=== PATIENT | female | born 1950 | race Caucasian/White ===

== ENCOUNTER 2018-09-29 08:30 | Day surgery (SDC) | payer MEDICARE, OTHER ==
[~2018-09-29] VITALS: Ht 172.7 cm; Wt 60.7 kg
[~2018-09-29 08:30] MED LIST: ALBU90OI INH; ASPI81CH PO; Aspirin EC81 MG PO; DONE10 PO; DONE5 PO; FURO20 PO; GABA100 PO; GABA300 PO; INSULANPEN; INSULANPEN SC; LISI5 PO; LITH300C PO; MONT10T PO; Novolog Fl100 UNIT/1 SC; Novolog100 UNIT/2 SC; OMEPRAZOLE MAGN20 MG PO; PRAV20 PO; Pravastatin Sod40 MG PO; Prozac20 MG; Prozac20 MG PO; Prozac40 MG PO; SUCR1 PO; TRAZ150T57; TRAZ150T57 PO
--- NOTE | 2018-09-29 11:18 | NUR ---
09/29/18 1118 Haily Miller PT. COUGHING POST UPPER ENDO. PT. WAS COUGHING IN PREOP, PT. IS A SMOKER & PT. VERBALIZES HAVING SINUS DRAINAGE DOWN THE BACK OF HER THROAT. PT. VERBALIZES COUGHING EVERY MORNING & TAKES A POWDER OTC THAT SHE PUTS IN HER COFFEE WHICH HELPS. PT. LUNGS CLEAR.
--- NOTE | 2018-09-29 14:59 | NUR ---
09/29/[address] NOTIFIED OF CBG 320 & HER TAKING 1UNIT OF REGULAR INSULIN AT HOME. PT. WITHOUT ANY ADVERSE REACTIONS. NO ORDERS GIVEN. PT. INSTRUCTED TO RESUME REGULAR MEDICATIONS & TO MONITOR HER BLOOD SUGAR AT HOME.
== END 2018-09-29 10:28 | disposition home or self-care (01) ==
LOC: ORSCSDS 08:30
PROVIDERS: Surgery
PROC: 0DB58ZX Excision of Esophagus, Via Natural or Artificial Opening Endoscopic, Diagnostic (ICD-10-PCS; principal; 2018-09-29 09:45)
DX: K21.9 Gastro-esophageal reflux disease without esophagitis (principal); E11.9 Type 2 diabetes mellitus without complications; Z79.82 Long term (current) use of aspirin; Z79.4 Long term (current) use of insulin; Z79.899 Other long term (current) drug therapy
CPT/HCPCS: 82947; 88305; J7120

== ENCOUNTER 2019-02-09 07:52 | Day surgery (SDC) | payer MEDICARE, OTHER ==
[~2019-02-09] VITALS: Ht 172.7 cm; Wt 60.3 kg
[~2019-02-09 07:52] MED LIST changes: +Zantac150 MG PO
--- NOTE | 2019-02-09 09:11 | NUR ---
02/09/19 0911 Darinel Duran CALL LIGHT WITHIN REACH
== END 2019-02-09 10:20 | disposition home or self-care (01) ==
LOC: ORSCSDS 07:52
PROVIDERS: Surgery
PROC: 0DJD8ZZ Inspection of Lower Intestinal Tract, Via Natural or Artificial Opening Endoscopic (ICD-10-PCS; principal; 2019-02-09 09:30)
DX: R10.9 Unspecified abdominal pain (principal); R19.7 Diarrhea, unspecified; K21.9 Gastro-esophageal reflux disease without esophagitis; E11.9 Type 2 diabetes mellitus without complications; J44.9 Chronic obstructive pulmonary disease, unspecified; E78.5 Hyperlipidemia, unspecified; I73.9 Peripheral vascular disease, unspecified; Z87.891 Personal history of nicotine dependence; Z79.4 Long term (current) use of insulin; Z79.82 Long term (current) use of aspirin; Z79.899 Other long term (current) drug therapy
CPT/HCPCS: 82947; J2704; J7120

== ENCOUNTER 2019-05-28 01:34 | Emergency (ER) | payer MEDICARE ==
[~2019-05-28] VITALS: Ht 172.7 cm; Wt 56.7 kg
[2019-05-28] MEDS ORDERED: Norco 5-325 Ta1 EACH PO (02:34)
[2019-05-28 03:41] LABS: BASOPHILS ABSOLUTE AUTO 0.08 K/mm3 (0.00-0.23); BASOPHILS PERCENT AUTO 1 % (0-2); EOSINOPHILS ABSOLUTE AUTO 0.23 K/mm3 (0.00-0.68); EOSINOPHILS PERCENT AUTO 3 % (0-6); Hematocrit 40.7 % (33.0-51.0); Hemoglobin 12.9 g/dL (11.5-16.0); IMMATURE GRAN ABSOLUTE AUTO 0.03 K/mm3 (0.00-0.10); IMMATURE GRAN PERCENT AUTO 0 % (0-1); LYMPHOCYTES ABSOLUTE AUTO 1.02 K/mm3 (0.84-5.20); LYMPHOCYTES PERCENT AUTO 12 % (21-46); MONOCYTES ABSOLUTE AUTO 0.76 K/mm3 (0.16-1.47); MONOCYTES PERCENT AUTO 9 % (4-13); Mean Corpuscular HGB 28.9 pg (26.0-34.0); Mean Corpuscular HGB Conc 31.7 g/dL (31.5-36.5); Mean Corpuscular Volume 91 fL (80-100); Mean Platelet Volume 11.4 fL (9.1-12.4); NEUTROPHILS ABSOLUTE AUTO 6.44 K/mm3 (1.96-9.15); NEUTROPHILS PERCENT AUTO 75 % (41-73); Platelet Count 219 K/mm3 (150-400); RDW Coefficient Variation 13.1 % (11.7-14.2); RDW Standard Deviation 43.6 fL (35.1-46.3); Red Blood Cell Count 4.47 M/mm3 (3.80-5.20); White Blood Cell Count 8.56 K/mm3 (4.00-11.30)
[2019-05-28 04:01] LABS: Alanine Aminotransfer (ALT/SGP 13 U/L (12-78); Albumin, Blood 3.4 g/dL (3.4-5.0); Albumin/Globulin Ratio 1.2 (0.8-1.8); Alk Phos 101 U/L (50-136); Anion Gap 4 mmol/L (6-16); Aspartate Aminotrans (AST/SGOT 14 U/L (12-37); Bilirubin, Total 0.2 mg/dL (0.1-1.0); Blood Urea Nitrogen 21 mg/dL (8-24); Bun/Creatinine Ratio 21.9 (12.0-20.0); CO2, Blood 30 mmol/L (21-32); Calcium, Blood 9.2 mg/dL (8.5-10.1); Chloride, Blood 105 mmol/L (98-108); Creatinine, Blood 0.96 mg/dL (0.40-1.00); Globulin, Blood 2.9 g/dL (2.2-4.0); Glomerular Filtration Rate >60 (60-); Glucose, Blood 154 mg/dL (70-99); Sodium, Blood 139 mmol/L (136-145); Total Protein, Blood 6.3 g/dL (6.4-8.2); Troponin I <0.015 ng/mL (0.000-0.040)
[2019-05-28 05:19] LABS: Source, Urine Clean Catch; U Amphetamine Screen Not Detected
[2019-05-28 05:20] LABS: U Barbituate Screen Not Detected; U Benzodiazapine Screen Not Detected; U Buprenorphine Screen Not Detected; U Cannabinoids Screen Not Detected; U Cocaine Screen Not Detected; U Methadone Screen Not Detected; U Methamphetamine Screen DETECTED; U Opiates Screen Not Detected; U Oxycodone Screen Not Detected; U Phencyclidine Screen Not Detected; U Propoxyphene Screen Not Detected
[2019-05-28 05:21] LABS: Appearance, Urine Hazy (Clear); Bacteria Few /hpf; Bilirubin, Urine Neg (Neg); Blood, Urine 3+ (Neg); Color, Urine Yellow (P-Yellow); Glucose Qualitative, Urine Neg (Neg); Ketones, Urine Neg (Neg); Leukocyte Esterase, Urine 3+ (Neg); Nitrite, Urine Neg (Neg); Protein, Urine Neg (Neg); Red Blood Cells, Urine 0-2 /hpf (0-2); Specific Gravity, Urine 1.015 (1.003-1.022); Squamous Epithelial Cells Mod /hpf (Few); Urobilinogen, Urine NORM (Normal)
[2019-05-28 05:22] LABS: Amorphous Mod (0-Heavy); Transitional Epithelial Cells Few /hpf (0-Rare)
== END 2019-05-28 06:35 | disposition home or self-care (01) ==
LOC: ER 01:34
PROVIDERS: Emergency Medicine
DX: R42 Dizziness and giddiness (principal); S93.602A Unspecified sprain of left foot, initial encounter; G30.9 Alzheimer's disease, unspecified; F02.80 Dementia in other diseases classified elsewhere, unspecified severity, without behavioral disturbance, psychotic disturbance, mood disturbance, and anxiety; F17.210 Nicotine dependence, cigarettes, uncomplicated; Z88.0 Allergy status to penicillin; Z88.2 Allergy status to sulfonamides; Z79.899 Other long term (current) drug therapy; Z79.4 Long term (current) use of insulin; Z79.82 Long term (current) use of aspirin; W01.0XXA Fall on same level from slipping, tripping and stumbling without subsequent striking against object, initial encounter
CPT/HCPCS: 36415; 73630; 80053; 81001; 83605; 84484; 85025; 87086; 93005; 93010; 96360; 96361; 99284-25; A9270-GY; J7030; P9612

== ENCOUNTER → 2019-06-14 | Outpatient (CLI) | payer MEDICARE, OTHER ==
[~2019-06-14] MED LIST changes: +Norco 5-325 Ta1 EACH PO
== END ==
LOC: LAB 18:53 → LAB SHORT 18:53
DX: R32 Unspecified urinary incontinence (principal)
CPT/HCPCS: 87077; 87086; 87186

== ENCOUNTER 2019-07-26 00:22 | Inpatient (IN) | payer MEDICARE, OTHER ==
[~2019-07-26] VITALS: Ht 172.7 cm; Wt 54.4 kg
[2019-07-26 00:55] LABS: BASOPHILS ABSOLUTE AUTO 0.07 K/mm3 (0.00-0.23); BASOPHILS PERCENT AUTO 0 % (0-2); EOSINOPHILS ABSOLUTE AUTO 0.08 K/mm3 (0.00-0.68); EOSINOPHILS PERCENT AUTO 1 % (0-6); Hematocrit 35.6 % (33.0-51.0); Hemoglobin 11.7 g/dL (11.5-16.0); IMMATURE GRAN ABSOLUTE AUTO 0.08 K/mm3 (0.00-0.10); IMMATURE GRAN PERCENT AUTO 1 % (0-1); LYMPHOCYTES ABSOLUTE AUTO 0.69 K/mm3 (0.84-5.20); LYMPHOCYTES PERCENT AUTO 4 % (21-46); MONOCYTES ABSOLUTE AUTO 0.91 K/mm3 (0.16-1.47); MONOCYTES PERCENT AUTO 6 % (4-13); Mean Corpuscular HGB Conc 32.9 g/dL (31.5-36.5); Mean Corpuscular Volume 88 fL (80-100); Mean Platelet Volume 11.7 fL (9.1-12.4); NEUTROPHILS PERCENT AUTO 89 % (41-73); Platelet Count 221 K/mm3 (150-400); RDW Coefficient Variation 13.2 % (11.7-14.2); RDW Standard Deviation 42.9 fL (35.1-46.3); Red Blood Cell Count 4.03 M/mm3 (3.80-5.20); White Blood Cell Count 16.53 K/mm3 (4.00-11.30)
[2019-07-26 01:14] LABS: Alanine Aminotransfer (ALT/SGP 16 U/L (12-78); Albumin, Blood 3.2 g/dL (3.4-5.0); Albumin/Globulin Ratio 1.2 (0.8-1.8); Alk Phos 99 U/L (50-136); Anion Gap 8 mmol/L (6-16); Aspartate Aminotrans (AST/SGOT 11 U/L (12-37); Bilirubin, Total 0.4 mg/dL (0.1-1.0); Blood Urea Nitrogen 22 mg/dL (8-24); Bun/Creatinine Ratio 26.9 (12.0-20.0); CO2, Blood 26 mmol/L (21-32); Calcium, Blood 8.8 mg/dL (8.5-10.1); Chloride, Blood 105 mmol/L (98-108); Creatinine, Blood 0.82 mg/dL (0.40-1.00); Globulin, Blood 2.6 g/dL (2.2-4.0); Glomerular Filtration Rate >60 (60-); Glucose, Blood 255 mg/dL (70-99); Potassium, Blood 3.8 mmol/L (3.5-5.5); Sodium, Blood 139 mmol/L (136-145); Total Protein, Blood 5.8 g/dL (6.4-8.2)
[2019-07-26 01:50] LABS: Source, Urine Clean Catch
[2019-07-26 01:52] LABS: Bilirubin, Urine Neg (Neg); Blood, Urine 2+ (Neg); Glucose Qualitative, Urine 2+ (Neg); Ketones, Urine Neg (Neg); Leukocyte Esterase, Urine Neg (Neg); Nitrite, Urine Neg (Neg); Protein, Urine 2+ (Neg); Specific Gravity, Urine 1.005 (1.003-1.022); Urobilinogen, Urine NORM (Normal)
[2019-07-26 01:54] LABS: Appearance, Urine Clear (Clear); Color, Urine Yellow (P-Yellow)
[2019-07-26 01:58] LABS: Bacteria Few /hpf; Squamous Epithelial Cells Rare /hpf (Few); White Blood Cells, Urine 0-2 /hpf (0-5)
[2019-07-26 05:31] LABS: Hematocrit 33.9 % (33.0-51.0); Hemoglobin 11.1 g/dL (11.5-16.0); Mean Corpuscular HGB 28.8 pg (26.0-34.0); Mean Corpuscular HGB Conc 32.7 g/dL (31.5-36.5); Mean Corpuscular Volume 88 fL (80-100); Mean Platelet Volume 11.6 fL (9.1-12.4); Platelet Count 204 K/mm3 (150-400); RDW Coefficient Variation 13.3 % (11.7-14.2); RDW Standard Deviation 42.8 fL (35.1-46.3); Red Blood Cell Count 3.85 M/mm3 (3.80-5.20); White Blood Cell Count 20.82 K/mm3 (4.00-11.30)
--- NOTE | 2019-07-26 05:50 | NUR ---
SHIFT SUMMARY PATIENT ADMITTED TO ROOM 327 FROM ER. AAOX4. PATIENT WEAK WITH SBA TO BATHROOM. PATIENT STATES SHE HAS ISSUES WITH INCONTINENCE AT TIMES. PATIENT STATES THAT SHE RAN OUT OF "ALL" OF HER MEDICATION 3 DAYS AGO AND HASNT HAD THEM. BED ALARM FOR SAFETY. WILL CONTINUE TO MONITOR AND REPORT TO ONCOMING SHIFT.
[2019-07-26 06:01] LABS: Alanine Aminotransfer (ALT/SGP 12 U/L (12-78); Albumin, Blood 2.8 g/dL (3.4-5.0); Albumin/Globulin Ratio 1.1 (0.8-1.8); Alk Phos 80 U/L (50-136); Anion Gap 7 mmol/L (6-16); Aspartate Aminotrans (AST/SGOT 14 U/L (12-37); Bilirubin, Total 0.4 mg/dL (0.1-1.0); Blood Urea Nitrogen 21 mg/dL (8-24); Bun/Creatinine Ratio 23.2 (12.0-20.0); CO2, Blood 27 mmol/L (21-32); Calcium, Blood 8.6 mg/dL (8.5-10.1); Chloride, Blood 103 mmol/L (98-108); Creatinine, Blood 0.91 mg/dL (0.40-1.00); Globulin, Blood 2.5 g/dL (2.2-4.0); Glomerular Filtration Rate >60 (60-); Glucose, Blood 273 mg/dL (70-99); Potassium, Blood 4.3 mmol/L (3.5-5.5); Sodium, Blood 137 mmol/L (136-145); Total Protein, Blood 5.3 g/dL (6.4-8.2)
[2019-07-26 06:53] LABS: Lithium <0.20 mmol/L (0.60-1.20)
[2019-07-26 15:57] LABS: Adenovirus Not Detected (NOT DETECT); Bordetella pertussis Not Detected (NOT DETECT); Chlamydophila pneumoniae Not Detected (NOT DETECT); Coronavirus 229E Not Detected (NOT DETECT); Coronavirus HKU1 Not Detected (NOT DETECT); Coronavirus NL63 Not Detected (NOT DETECT); Coronavirus OC43 Not Detected (NOT DETECT); Human Metapneumovirus Not Detected (NOT DETECT); Human Rhinovirus/Enterovirus Not Detected (NOT DETECT); Influenza A Not Detected (NOT DETECT); Influenza A/2009-H1 Not Detected (NOT DETECT); Influenza A/H1 Not Detected (NOT DETECT); Influenza A/H3 Not Detected (NOT DETECT); Influenza B Not Detected (NOT DETECT); Mycoplasma pneumoniae Not Detected (NOT DETECT); Parainfluenza Virus 1 Not Detected (NOT DETECT); Parainfluenza Virus 2 Not Detected (NOT DETECT); Parainfluenza Virus 3 Not Detected (NOT DETECT); Parainfluenza Virus 4 Not Detected (NOT DETECT); Respiratory Syncytial Virus Not Detected (NOT DETECT)
--- NOTE | 2019-07-26 18:35 | NUR ---
SHIFT SUMMARY PT UP TO BATHROOM USING FWW INDEPENDENTLY. DENIES ANY RESP DISTRESS TODAY. SUPPOSITORY GIVEN PER PT REQUEST AND HAD AN XLG LARGE BM. SHOWER TAKEN EARLIER TODAY AND TOLERATING WITH NO PROBLEM.
[2019-07-27 05:15] LABS: BASOPHILS ABSOLUTE AUTO 0.06 K/mm3 (0.00-0.23); BASOPHILS PERCENT AUTO 0 % (0-2); EOSINOPHILS ABSOLUTE AUTO 0.22 K/mm3 (0.00-0.68); EOSINOPHILS PERCENT AUTO 2 % (0-6); Hemoglobin 11.1 g/dL (11.5-16.0); IMMATURE GRAN ABSOLUTE AUTO 0.06 K/mm3 (0.00-0.10); IMMATURE GRAN PERCENT AUTO 0 % (0-1); LYMPHOCYTES ABSOLUTE AUTO 1.93 K/mm3 (0.84-5.20); LYMPHOCYTES PERCENT AUTO 14 % (21-46); MONOCYTES ABSOLUTE AUTO 1.19 K/mm3 (0.16-1.47); MONOCYTES PERCENT AUTO 9 % (4-13); Mean Corpuscular HGB 28.6 pg (26.0-34.0); Mean Corpuscular HGB Conc 31.7 g/dL (31.5-36.5); Mean Corpuscular Volume 90 fL (80-100); Mean Platelet Volume 11.1 fL (9.1-12.4); NEUTROPHILS ABSOLUTE AUTO 10.52 K/mm3 (1.96-9.15); NEUTROPHILS PERCENT AUTO 75 % (41-73); Platelet Count 211 K/mm3 (150-400); RDW Coefficient Variation 13.4 % (11.7-14.2); RDW Standard Deviation 44.4 fL (35.1-46.3); Red Blood Cell Count 3.88 M/mm3 (3.80-5.20); White Blood Cell Count 13.98 K/mm3 (4.00-11.30)
[2019-07-27 05:40] LABS: Albumin, Blood 2.6 g/dL (3.4-5.0); Anion Gap 5 mmol/L (6-16); Blood Urea Nitrogen 13 mg/dL (8-24); Bun/Creatinine Ratio 15.8 (12.0-20.0); CO2, Blood 28 mmol/L (21-32); Calcium, Blood 9.1 mg/dL (8.5-10.1); Chloride, Blood 110 mmol/L (98-108); Creatinine, Blood 0.82 mg/dL (0.40-1.00); Glomerular Filtration Rate >60 (60-); Glucose, Blood 199 mg/dL (70-99); Phosphorus, Blood 2.7 mg/dL (2.5-4.9); Potassium, Blood 4.3 mmol/L (3.5-5.5); Sodium, Blood 143 mmol/L (136-145)
--- NOTE | 2019-07-27 05:46 | NUR ---
SHIFT SUMMARY NO ACUTE EVENTS OVERNIGHT. 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 NO COMPLAINTS. PATIENT WAS CONCERNED ANOUT FSBS WHEN SHE WOKE UP SO WE CHECKED IT FOR HER AND IT WAS IN THE 190'S. PATIENT JUST STATED SHE FELT WEIRD BUT NOT IN ANY PAIN. PATIENT THEN WENT BACK TO SLEEP. INDEPENDENT IN ROOM. AAOX4. WCTM
--- NOTE | 2019-07-27 18:05 | NUR ---
SHIFT SUMMARY INDEPENDENT IN ROOM USING FWW. DENIES ANY RESP DISTRESS. NAPPING IN AFTERNOON. POSSIBLE DISCHARGE TOMORROW. REPORTS POOR APPETITE. MD CALLED AT LUNCHTIME WITH ELEVATED BLOOD SUGARS AND SLIDING SCALE CHANGED.
--- NOTE | 2019-07-28 02:55 | NUR ---
07/27/191999 RESTING COMFORTABLY, CONTACT PRECAUTIONS FOR HX ESBL MAINTAINED. 07/28/19 RESTING COMFORTABLY.
--- NOTE | 2019-07-28 04:37 | NUR ---
SHIFT SUMMARY: 69 Y/O FEMALE RESTED COMFORTABLY ALL SHIFT, DENIES PAIN, NAUSEA OR DYSPNEA, EAGER TO POSSIBLE RETURN HOME [facility] TODAY, BED LOW POSITION WITH CALL LIGHT AT SIDE.
[2019-07-28 05:18] LABS: BASOPHILS ABSOLUTE AUTO 0.06 K/mm3 (0.00-0.23); BASOPHILS PERCENT AUTO 1 % (0-2); EOSINOPHILS PERCENT AUTO 3 % (0-6); Hematocrit 33.7 % (33.0-51.0); Hemoglobin 10.8 g/dL (11.5-16.0); IMMATURE GRAN ABSOLUTE AUTO 0.06 K/mm3 (0.00-0.10); IMMATURE GRAN PERCENT AUTO 1 % (0-1); LYMPHOCYTES PERCENT AUTO 21 % (21-46); MONOCYTES ABSOLUTE AUTO 1.11 K/mm3 (0.16-1.47); MONOCYTES PERCENT AUTO 10 % (4-13); Mean Corpuscular HGB 28.1 pg (26.0-34.0); Mean Corpuscular Volume 88 fL (80-100); Mean Platelet Volume 11.6 fL (9.1-12.4); NEUTROPHILS ABSOLUTE AUTO 7.34 K/mm3 (1.96-9.15); NEUTROPHILS PERCENT AUTO 66 % (41-73); Platelet Count 221 K/mm3 (150-400); RDW Coefficient Variation 12.9 % (11.7-14.2); RDW Standard Deviation 41.2 fL (35.1-46.3); Red Blood Cell Count 3.85 M/mm3 (3.80-5.20); White Blood Cell Count 11.17 K/mm3 (4.00-11.30)
[2019-07-28] MEDS ORDERED: NOVOLOG FL100 UNIT/1 SC (14:43)
[2019-07-28] MEDS ORDERED: Flonase 0.05% N16 GM (14:43)
[2019-07-28] MEDS ORDERED: ALBU90OI INH (14:44)
[2019-07-28] MEDS ORDERED: LEVOFLOXACIN750 MG PO (14:44)
[2019-07-28] MEDS ORDERED: Nicoderm Cq1 EAC1 TOP (14:44)
--- NOTE | 2019-07-28 16:17 | NUR ---
PATIENT DISCHARGE: PATIENT DISCHARGED TO HOME THIS SHIFT. MEDICATION RECONCILIATION COMPLETED; MED LIST FAXED TO [facility] IN [place]. DISCHARGE EDUCATION COMPLETED WITH PATIENT AND FAMILY. PATIENT TRANSPORTED TO EXIT BY [facility] STAFF WITH WHEELCHAIR AT 1610. PATIENT DEPARTED [facility] VIA PRIVATE AUTO.
== END 2019-07-28 16:20 | disposition home or self-care (01) | DRG 871 ==
LOC: ER 00:22 → MEDS 00:23
PROVIDERS: Emergency Medicine; Family Medicine; ADMIT Internal Medicine
DX: A41.9 Sepsis, unspecified organism (principal); J18.9 Pneumonia, unspecified organism; J44.0 Chronic obstructive pulmonary disease with (acute) lower respiratory infection; E11.65 Type 2 diabetes mellitus with hyperglycemia; E11.42 Type 2 diabetes mellitus with diabetic polyneuropathy; E78.5 Hyperlipidemia, unspecified; G30.9 Alzheimer's disease, unspecified; F02.80 Dementia in other diseases classified elsewhere, unspecified severity, without behavioral disturbance, psychotic disturbance, mood disturbance, and anxiety; F32.9 Major depressive disorder, single episode, unspecified; K21.9 Gastro-esophageal reflux disease without esophagitis; F17.290 Nicotine dependence, other tobacco product, uncomplicated; Z88.0 Allergy status to penicillin; Z88.2 Allergy status to sulfonamides; Z79.82 Long term (current) use of aspirin; Z79.4 Long term (current) use of insulin; Z79.899 Other long term (current) drug therapy
CPT/HCPCS: 0099U; 36415; 36416; 71046; 80053; 80069; 80178; 81001; 82947; 83605; 83690; 85025; 85027; 93005; 93010; 96365; 97110; 97161; 97165; 99285-25; A9270; G0378; J1650; J1815; J1956; J2405; J7030

== ENCOUNTER → 2019-08-29 | Outpatient (CLI) | payer MEDICARE, OTHER ==
[~2019-08-29] MED LIST changes: +CEFD300 PO; +Diflucan100 MG PO; +Flonase 0.05% N16 GM; +LEVOFLOXACIN750 MG PO; +NOVOLOG FL100 UNIT/1 SC; +Nicoderm Cq1 EAC1 TOP; +ONDA4ODT SL
== END | disposition home or self-care (01) ==
LOC: LAB 17:58 → LAB SHORT 17:58
DX: R30.0 Dysuria (principal)
CPT/HCPCS: 87086

== ENCOUNTER 2019-09-08 13:14 | Emergency (ER) | payer MEDICARE, OTHER ==
[~2019-09-08] VITALS: Ht 170.2 cm; Wt 55.3 kg
[~2019-09-08 13:14] MED LIST changes: -CEFD300 PO; -Diflucan100 MG PO; -ONDA4ODT SL
[2019-09-08 14:48] LABS: BASOPHILS ABSOLUTE AUTO 0.13 K/mm3 (0.00-0.23); BASOPHILS PERCENT AUTO 1 % (0-2); EOSINOPHILS PERCENT AUTO 1 % (0-6); Hematocrit 34.8 % (33.0-51.0); Hemoglobin 11.6 g/dL (11.5-16.0); IMMATURE GRAN ABSOLUTE AUTO 0.04 K/mm3 (0.00-0.10); IMMATURE GRAN PERCENT AUTO 0 % (0-1); LYMPHOCYTES ABSOLUTE AUTO 2.02 K/mm3 (0.84-5.20); LYMPHOCYTES PERCENT AUTO 20 % (21-46); MONOCYTES ABSOLUTE AUTO 0.77 K/mm3 (0.16-1.47); MONOCYTES PERCENT AUTO 8 % (4-13); Mean Corpuscular HGB 29.5 pg (26.0-34.0); Mean Corpuscular HGB Conc 33.3 g/dL (31.5-36.5); Mean Corpuscular Volume 89 fL (80-100); NEUTROPHILS ABSOLUTE AUTO 7.18 K/mm3 (1.96-9.15); NEUTROPHILS PERCENT AUTO 70 % (41-73); Platelet Count 251 K/mm3 (150-400); RDW Coefficient Variation 12.9 % (11.7-14.2); Red Blood Cell Count 3.93 M/mm3 (3.80-5.20); White Blood Cell Count 10.24 K/mm3 (4.00-11.30)
[2019-09-08 14:54] LABS: Source, Urine Clean Catch
[2019-09-08 15:06] LABS: Bilirubin, Urine Neg (Neg); Blood, Urine Neg (Neg); Glucose Qualitative, Urine 4+ (Neg); Ketones, Urine Neg (Neg); Leukocyte Esterase, Urine 1+ (Neg); Nitrite, Urine Neg (Neg); Protein, Urine Neg (Neg); Urobilinogen, Urine NORM (Normal)
[2019-09-08 15:10] LABS: Alanine Aminotransfer (ALT/SGP 22 U/L (12-78); Albumin, Blood 3.4 g/dL (3.4-5.0); Albumin/Globulin Ratio 1.2 (0.8-1.8); Alk Phos 103 U/L (50-136); Anion Gap 5 mmol/L (6-16); Aspartate Aminotrans (AST/SGOT 20 U/L (12-37); Bilirubin, Total 0.4 mg/dL (0.1-1.0); Blood Urea Nitrogen 26 mg/dL (8-24); Bun/Creatinine Ratio 32.2 (12.0-20.0); CO2, Blood 26 mmol/L (21-32); Calcium, Blood 9.2 mg/dL (8.5-10.1); Chloride, Blood 100 mmol/L (98-108); Creatinine, Blood 0.81 mg/dL (0.40-1.00); Globulin, Blood 2.9 g/dL (2.2-4.0); Glomerular Filtration Rate >60 (60-); Glucose, Blood 416 mg/dL (70-99); Potassium, Blood 4.8 mmol/L (3.5-5.5); Sodium, Blood 131 mmol/L (136-145); Total Protein, Blood 6.3 g/dL (6.4-8.2)
[2019-09-08 15:30] LABS: Appearance, Urine Clear (Clear); Color, Urine Yellow (P-Yellow)
[2019-09-08 15:32] LABS: Bacteria Few /hpf; Red Blood Cells, Urine Not Seen /hpf (0-2); Squamous Epithelial Cells Rare /hpf (Few); White Blood Cells, Urine 0-2 /hpf (0-5)
== END 2019-09-08 19:36 | disposition home or self-care (01) ==
LOC: ER 13:14
PROVIDERS: Emergency Medicine
DX: E10.65 Type 1 diabetes mellitus with hyperglycemia (principal); J44.9 Chronic obstructive pulmonary disease, unspecified; F17.210 Nicotine dependence, cigarettes, uncomplicated; Z88.0 Allergy status to penicillin; Z88.2 Allergy status to sulfonamides; Z79.899 Other long term (current) drug therapy; Z79.82 Long term (current) use of aspirin
CPT/HCPCS: 36415; 80053; 81001; 82010; 82947; 85025; 87086; 93005; 93010; 96360; 96361; 99284-25; J1815; J7030

== ENCOUNTER 2019-09-22 16:30 | Emergency (ER) | payer MEDICARE, OTHER ==
[~2019-09-22] VITALS: Ht 170.2 cm; Wt 55.3 kg
[2019-09-22 17:13] LABS: BASOPHILS ABSOLUTE AUTO 0.08 K/mm3 (0.00-0.23); BASOPHILS PERCENT AUTO 1 % (0-2); EOSINOPHILS PERCENT AUTO 2 % (0-6); Hematocrit 34.6 % (33.0-51.0); Hemoglobin 11.3 g/dL (11.5-16.0); IMMATURE GRAN ABSOLUTE AUTO 0.04 K/mm3 (0.00-0.10); IMMATURE GRAN PERCENT AUTO 0 % (0-1); LYMPHOCYTES ABSOLUTE AUTO 2.78 K/mm3 (0.84-5.20); LYMPHOCYTES PERCENT AUTO 30 % (21-46); MONOCYTES ABSOLUTE AUTO 0.77 K/mm3 (0.16-1.47); MONOCYTES PERCENT AUTO 8 % (4-13); Mean Corpuscular HGB 29.7 pg (26.0-34.0); Mean Corpuscular HGB Conc 32.7 g/dL (31.5-36.5); Mean Corpuscular Volume 91 fL (80-100); Mean Platelet Volume 11.5 fL (9.1-12.4); NEUTROPHILS PERCENT AUTO 58 % (41-73); Platelet Count 242 K/mm3 (150-400); RDW Coefficient Variation 12.9 % (11.7-14.2); RDW Standard Deviation 42.7 fL (35.1-46.3); Red Blood Cell Count 3.81 M/mm3 (3.80-5.20); White Blood Cell Count 9.27 K/mm3 (4.00-11.30)
[2019-09-22 17:25] LABS: Alanine Aminotransfer (ALT/SGP 20 U/L (12-78); Albumin, Blood 3.4 g/dL (3.4-5.0); Albumin/Globulin Ratio 1.4 (0.8-1.8); Alk Phos 92 U/L (50-136); Anion Gap 3 mmol/L (6-16); Aspartate Aminotrans (AST/SGOT 13 U/L (12-37); Bilirubin, Total 0.1 mg/dL (0.1-1.0); Blood Urea Nitrogen 16 mg/dL (8-24); Bun/Creatinine Ratio 18.3 (12.0-20.0); CO2, Blood 30 mmol/L (21-32); Calcium, Blood 8.9 mg/dL (8.5-10.1); Chloride, Blood 107 mmol/L (98-108); Creatinine, Blood 0.88 mg/dL (0.40-1.00); Globulin, Blood 2.5 g/dL (2.2-4.0); Glomerular Filtration Rate >60 (60-); Glucose, Blood 154 mg/dL (70-99); Potassium, Blood 3.6 mmol/L (3.5-5.5); Sodium, Blood 140 mmol/L (136-145); Total Protein, Blood 5.9 g/dL (6.4-8.2); Troponin I <0.015 ng/mL (0.000-0.040)
[2019-09-22 19:09] LABS: Source, Urine Voided
[2019-09-22 19:13] LABS: Bilirubin, Urine Neg (Neg); Blood, Urine 2+ (Neg); Glucose Qualitative, Urine 2+ (Neg); Ketones, Urine 1+ (Neg); Leukocyte Esterase, Urine 3+ (Neg); Nitrite, Urine Neg (Neg); Protein, Urine 2+ (Neg); Urobilinogen, Urine 1+ (Normal)
[2019-09-22 19:24] LABS: Appearance, Urine Clear (Clear); Color, Urine Yellow (P-Yellow)
[2019-09-22 19:25] LABS: Bacteria Mod /hpf; Squamous Epithelial Cells Few /hpf (Few); White Blood Cells, Urine TNTC /hpf (0-5)
[2019-09-22] MEDS ORDERED: CEFD300 PO (20:21)
[2019-09-22] MEDS ORDERED: ONDA4ODT SL (20:21)
[2019-09-22] MEDS ORDERED: Diflucan100 MG PO (20:21)
== END 2019-09-22 21:12 | disposition home or self-care (01) ==
LOC: ER 16:30
PROVIDERS: Emergency Medicine
DX: R07.9 Chest pain, unspecified (principal); F17.210 Nicotine dependence, cigarettes, uncomplicated; Z88.0 Allergy status to penicillin; Z88.2 Allergy status to sulfonamides; Z79.899 Other long term (current) drug therapy; Z79.4 Long term (current) use of insulin; Z79.82 Long term (current) use of aspirin
CPT/HCPCS: 71046; 80053; 81001; 83690; 83880; 84484; 85025; 93005; 93010; 96361; 96365; 96375; 99285-25; J0696; J2405; J7030

== ENCOUNTER → 2020-03-19 | Outpatient (CLI) | payer MEDICARE, OTHER ==
[~2020-03-19] MED LIST changes: +ACIDOPHILUS1 EAC3 PO; +ALENDRONATE SOD10 MG PO; +BASAGLAR K100 UNIT/4 SC; +CEFD300 PO; +DOXE10 PO; +Diflucan100 MG PO; +Doxepin HCl10 MG PO; +FAMO20 PO; +FLUC150A PO; +FUROSEMIDE20 MG PO; +HUMALOG KW100 UNIT/1 SC; +Heartburn Relie20 MG PO; +LISINOPRIL2.5 MG PO; +Lisinopril2.5 MG PO; +Lithium Carbon300 MG PO; +MYRBETRIQ50 MG PO; +NEURONTIN300 MG PO; +NOVOLOG FL100 UNIT/3 SC; +OMEP20ER PO; +ONDA4ODT SL; +Oxybutynin Chlo15 MG PO; +PROZAC40 MG PO; +Pravachol40 MG PO; +Razadyne12 MG PO
== END ==
LOC: LAB SHORT 14:34 → LAB UCHC 14:34
DX: N39.0 Urinary tract infection, site not specified (principal)
CPT/HCPCS: 87077; 87086; 87186

== ENCOUNTER 2020-04-10 10:51 | Observation (INO) | payer MEDICARE, OTHER ==
[~2020-04-10] VITALS: Ht 172.7 cm; Wt 62.3 kg
[~2020-04-10 10:51] MED LIST changes: -ACIDOPHILUS1 EAC3 PO; -BASAGLAR K100 UNIT/4 SC; -Doxepin HCl10 MG PO; -FAMO20 PO; -FLUC150A PO; -FUROSEMIDE20 MG PO; -HUMALOG KW100 UNIT/1 SC; -Lisinopril2.5 MG PO; -Lithium Carbon300 MG PO; -MYRBETRIQ50 MG PO; -NEURONTIN300 MG PO; -NOVOLOG FL100 UNIT/3 SC; -OMEP20ER PO; -PROZAC40 MG PO; -Pravachol40 MG PO
[2020-04-10 11:37] LABS: BASOPHILS ABSOLUTE AUTO 0.09 K/mm3 (0.00-0.23); BASOPHILS PERCENT AUTO 1 % (0-2); EOSINOPHILS ABSOLUTE AUTO 0.25 K/mm3 (0.00-0.68); EOSINOPHILS PERCENT AUTO 2 % (0-6); Hematocrit 37.9 % (33.0-51.0); Hemoglobin 12.2 g/dL (11.5-16.0); IMMATURE GRAN ABSOLUTE AUTO 0.08 K/mm3 (0.00-0.10); IMMATURE GRAN PERCENT AUTO 1 % (0-1); LYMPHOCYTES PERCENT AUTO 20 % (21-46); MONOCYTES ABSOLUTE AUTO 0.76 K/mm3 (0.16-1.47); MONOCYTES PERCENT AUTO 7 % (4-13); Mean Corpuscular HGB 30.4 pg (26.0-34.0); Mean Corpuscular HGB Conc 32.2 g/dL (31.5-36.5); Mean Corpuscular Volume 95 fL (80-100); Mean Platelet Volume 11.8 fL (9.1-12.4); NEUTROPHILS ABSOLUTE AUTO 7.41 K/mm3 (1.96-9.15); NEUTROPHILS PERCENT AUTO 70 % (41-73); Platelet Count 201 K/mm3 (150-400); RDW Coefficient Variation 12.8 % (11.7-14.2); RDW Standard Deviation 44.5 fL (35.1-46.3); Red Blood Cell Count 4.01 M/mm3 (3.80-5.20); White Blood Cell Count 10.69 K/mm3 (4.00-11.30)
[2020-04-10 11:54] LABS: Albumin, Blood 3.2 g/dL (3.4-5.0); Albumin/Globulin Ratio 1.1 (0.8-1.8); Bilirubin, Total 0.3 mg/dL (0.1-1.0); Bun/Creatinine Ratio 27.5 (12.0-20.0); Calcium, Blood 9.6 mg/dL (8.5-10.1); Creatinine, Blood 1.2 mg/dL (0.40-1.00); Potassium, Blood 3.8 mmol/L (3.5-5.5); Total Protein, Blood 6.2 g/dL (6.4-8.2)
[2020-04-10] MEDS ORDERED: Doxepin HCl10 MG PO (11:59)
[2020-04-10] MEDS ORDERED: PROZAC40 MG PO (12:00)
[2020-04-10] MEDS ORDERED: NEURONTIN300 MG PO (12:01)
[2020-04-10] MEDS ORDERED: MYRBETRIQ50 MG PO (12:01)
[2020-04-10] MEDS ORDERED: FAMO20 PO (12:01)
[2020-04-10] MEDS ORDERED: FUROSEMIDE20 MG PO (12:01)
[2020-04-10] MEDS ORDERED: Razadyne12 MG PO (12:01)
[2020-04-10] MEDS ORDERED: OMEP20ER PO (12:02)
[2020-04-10] MEDS ORDERED: NOVOLOG FL100 UNIT/3 SC (12:02)
[2020-04-10] MEDS ORDERED: Lithium Carbon300 MG PO (12:02)
[2020-04-10] MEDS ORDERED: Pravachol40 MG PO (12:02)
[2020-04-10 12:03] LABS: Magnesium, Blood 2.2 mg/dL (1.6-2.4); Troponin I <0.015 ng/mL (0.000-0.040)
[2020-04-10] MEDS ORDERED: BASAGLAR K100 UNIT/4 SC (12:03)
[2020-04-10] MEDS ORDERED: FLUC150A PO (12:03)
[2020-04-10 13:22] LABS: Source, Urine Clean Catch
[2020-04-10 13:29] LABS: Appearance, Urine Clear (Clear); Bilirubin, Urine Neg (Neg); Blood, Urine 2+ (Neg); Color, Urine Yellow (P-Yellow); Glucose Qualitative, Urine 4+ (Neg); Ketones, Urine Neg (Neg); Leukocyte Esterase, Urine 3+ (Neg); Nitrite, Urine Neg (Neg); Protein, Urine 2+ (Neg); Urobilinogen, Urine NORM (Normal)
[2020-04-10 13:45] LABS: Squamous Epithelial Cells Few /hpf (Few); Transitional Epithelial Cells Few /hpf (0-Rare)
[2020-04-10 13:46] LABS: Bacteria Few /hpf
[2020-04-10] MEDS ORDERED: Lisinopril2.5 MG PO (13:58)
[2020-04-10 19:43] LABS: Lithium 1.08 mmol/L (0.60-1.20)
[2020-04-10] MEDS ORDERED: HUMALOG KW100 UNIT/1 SC (21:49)
--- NOTE | 2020-04-10 22:00 | NUR ---
PATIENT BEING ADMITTED TO THE FLOOR FOR GENERAL WEAKNESS R/T UTI. JESUS ARRIVED VIA GURNEY, TRANSFERRED TO BED USING SLIDER. SHE IS AOX3, ABLE TO GIVE HISTORY FAIRLY. SHE HAS TROUBLE REMEMBER DETAILS MAKING SOME OF IT SCATTERED OR PEICES OF THINGS. SUCH HER MEDICAITON. SHE DOES NOT KNOW WHAT SHE IS TAKING, GOT MED REC OFF A LIST FROM HER PHARMACY, THEN SHE TOLD ME SHE WAS TAKING SOME OF HER MEDS BUT TAKING OTHERS. IT APPEARS THAT SHE HAS PROBLEMS REMEMBER WHAT MEDS SHE IS ON AND WHAT SHE IS NOT. PROBALLY HOW SHE DOUBLED DOSE HER LITHIUM. WILL HAVE TO CONTACT PHARMACY IN AM. BLOOD SUGAR CHECKED PER PATIENT MACHINE. SHE HAS A IMPLANTED DEVICE THAT SHE CAN SCAN AND IT GIVES HER THE VALUE. SHE CHECKED IT FOR ME WHICH IT WAS 204. WILL HAVE TO CHECK WITH MICKEY GAONA IF OK TO USE PATIENTS MACHINE FOR CHECKING. LUNG SOUNDS CLEAR THROUGHOUT, SHE IS A SMOKER. ASKING FOR NICOTINE PATCH. HR SINUS. NO SKIN ISSUES NOTED. SHE DID TRY TO STAND AND HER LEGS GOT REALLY WOBBLING. ATTENDS CHANGED, HISTORY OF EBLS IN URINE. CONTACT PERCAUTIONS TAKEN. COMPLETED ADMIT. CALL LIGHT GIVEN. NO PAIN NOTED.
--- NOTE | 2020-04-10 22:12 | NUR ---
CALLED MICKEY GAONA REGARDING NICOTINE PATCH. ORDER WILL BE PLACED.
[2020-04-10] MEDS ORDERED: TRAZ150T57 PO (23:18)
--- NOTE | 2020-04-10 23:29 | NUR ---
SPOKE TO MICKEY GAONA REGARDING HOME MEDICATIONS. INFORMED HER THAT THE PATIENT DOES NOT REMEMBER WHAT MEDICATIONS SHE IS TAKING. SHE GAVE A PHARMACY LIST THEN LATER SHE SAID SHE THOUGHT IT WAS THE WRONG ONE CAUSE SHE TAKES TRAZADONE AT HOME AND IT WAS NOT ON IT. THERE IS CONCERN THAT SHE IS TAKING OLD PRESCRIPTIONS OR POSSIBLY DOUBLING UP ON MEDS. WILL CONTACT PHARMCY IN AM FOR LIST OF MEDS SHE IS SUPPOSE TO BE ON.
--- NOTE | 2020-04-10 23:35 | NUR ---
SPOKE TO MICKEY MANAGER [employer] AGAIN REGARDING HOME MEDICATIONS TO BE ORDERED. INFORMED OF CONCERN THAT THE PATIENT MAY NOT KNOW WHAT SHE IS SUPPOSE TO BE ON OR BE TAKING. MICKEY WANTS THE PHARMACY TO BE CONTACTED IN AM FOR LIST OF MEDICATIONSS. WILL NOT ORDER ANY RIGHT NOW DUE TO THIS. INFORMED OF BLOOD SUGAR CHECK OF 204. SHE GAVE ORDER TO CHANGE CHEM BG CHECKS TO AC. GAVE OK TO USE PERSONAL DEVICE BUT IF SX ARE OFF TO CHECK WITH IN HOUSE DEVICE.
--- NOTE | 2020-04-11 05:09 | NUR ---
SHIFT SUMMARY: JESUS WAS ADMITTED FOR UTI W/WEAKENSS. AOX3, FORGETFUL. HX: ALZHEIMERS/DEMENTIA. NORMALL INDEPENDENT AT HOME, LIVES ALONE, NOW IS NOT ABLE TO STAND WITH OUT ASSISTANCE. LEGS ARE VERY WOBBLING AND WANT TO BUCKLE. MEDS STILL NEED TO BE RECONCILED DUE TO PATIENT NOT REMEMBER WELL WHAT SHE IS ON. DAY SHIFT WILL NEED TO CONTACT HER PHARMACY AND MD TO FIND OUT WHAT SHE IS SUPPOSE TO BE TAKING. THERE IS QUESTION OF DOUBLE DOSING OF HER LITHIUM AND POSSIBLY OTHER PILLS. NO PAIN NOTED. URINE CLEAR YELLOW. IS INCONTIENT AT TIMES. VS WITH SLIGHTLY ELEVATED BP IN THE 160'S AFTER SHE JUST GOT UP TO THE COMMODE. AFEBRILE. DENIES ANY PAIN OR DISCOMFORT. DID CALL MD A COUPLE OF TIMES REGARDING A NICOTINE PATCH AND TRAZADONE. SHE SLEPT WELL THE REST OF SHIFT. EASILY AWAKENED. IV FLUIDS CONTINUE TO INFUSE AT 100ML/HR. WILL REPORT TO DAY SHIFT WHEN THEY ARRIVE. CALL LIGHT IN REACH AND HAS BEEN USED APPROPRIATLY.
[2020-04-11 05:10] LABS: BASOPHILS ABSOLUTE AUTO 0.05 K/mm3 (0.00-0.23); BASOPHILS PERCENT AUTO 1 % (0-2); EOSINOPHILS ABSOLUTE AUTO 0.25 K/mm3 (0.00-0.68); EOSINOPHILS PERCENT AUTO 3 % (0-6); Hematocrit 35.1 % (33.0-51.0); Hemoglobin 11.5 g/dL (11.5-16.0); IMMATURE GRAN ABSOLUTE AUTO 0.05 K/mm3 (0.00-0.10); IMMATURE GRAN PERCENT AUTO 1 % (0-1); LYMPHOCYTES ABSOLUTE AUTO 2.37 K/mm3 (0.84-5.20); LYMPHOCYTES PERCENT AUTO 28 % (21-46); MONOCYTES ABSOLUTE AUTO 0.78 K/mm3 (0.16-1.47); MONOCYTES PERCENT AUTO 9 % (4-13); Mean Corpuscular HGB 30.3 pg (26.0-34.0); Mean Corpuscular HGB Conc 32.8 g/dL (31.5-36.5); Mean Corpuscular Volume 93 fL (80-100); Mean Platelet Volume 11.2 fL (9.1-12.4); NEUTROPHILS PERCENT AUTO 58 % (41-73); Platelet Count 227 K/mm3 (150-400); RDW Coefficient Variation 12.9 % (11.7-14.2); RDW Standard Deviation 44.2 fL (35.1-46.3); Red Blood Cell Count 3.79 M/mm3 (3.80-5.20)
[2020-04-11 05:59] LABS: Albumin, Blood 2.8 g/dL (3.4-5.0); Anion Gap 6 mmol/L (6-16); Blood Urea Nitrogen 23 mg/dL (8-24); Bun/Creatinine Ratio 25.2 (12.0-20.0); CO2, Blood 21 mmol/L (21-32); Calcium, Blood 8.9 mg/dL (8.5-10.1); Chloride, Blood 116 mmol/L (98-108); Creatinine, Blood 0.91 mg/dL (0.40-1.00); Glomerular Filtration Rate >60 (60-); Glucose, Blood 58 mg/dL (70-99); Potassium, Blood 3.9 mmol/L (3.5-5.5); Sodium, Blood 143 mmol/L (136-145)
--- NOTE | 2020-04-11 06:40 | NUR ---
JESUS'S BLOOD WORK CAME BACK AND SHOWED A GLUCOSE OF 58, WENT TO ROOM AND WOKE HER UP, SHE CHECKED USING HER DEVICE, IT WAS 32. GAVE HER YOGURT, CHEESE AND OJ. RECHECK WAS 83. ENCOURAGE HER TO FINSIH HER OJ AND CHEESE.
--- NOTE | 2020-04-11 12:25 | NUR ---
Initial palliative care consult: Diya is a 69 year old with a history of Alzheimer's dementia, COPD, DM, PVD, neuropathy, hyperlipidemia, HTN, bipolar, anxiety and depression. She was admitted from [facility] yesterday with leg weakness and the sudden inability to walk. Her daughter, Barbie, who helps take care of her is currently in [place] on a hunting trip for the next three weeks and Diya states she will be out of cell phone service. Diya lives at [facility]. She has lived there two years. She lives there with her dog "Jefe" who she has had for 11 years. She states she doesn't like living at [facility], however her daughter and disability case manager have not been able to find alternate housing that will accept her dog. She reports her dog is her life. She is able to bathe, dress and feed herself most of the time. Meals are provided by [facility], however she reports she does not like the food. She states Barbie assists her with cleaning and her laundry. She states that she is forgetful frequently. She forgets names of people, but will recognize their faces. She states she frequently will forget which floor her apartment is on and how to get back to her room. She remembers the events of how she ended up at the hospital. She has no complaints at this time other than she is feeling weak but feels that this is improving since admission. She has no questions at this time. POLST on file is DNR with limited treatments. Her current plan of care falls within her stated goals of care at this time. PC will continue to follow.
--- NOTE | 2020-04-11 17:16 | NUR ---
SUMMARY- PT ALERT AND ORIENTED, CANT REMEMBER DETAILS. FORGETS TO USE CALL LIGHT DESPITE REMINDERS, BUT HAS GAINED STRENGTH TODAY AND GOTTEN UP SBA TO BATHROOM FOR A SHOWER, WITH GOOD STRENGTH AND STEADY GAIT WITH OCC MIS-STEP. REMINDED TO ALWAYS HAVE STANDBY BECAUSE OF THIS MISSTEP. PT TOLERATING FOOD AND FLUIDS. BLOOD SUGARS OVER 300 AT LUNCH, CALLED RESIDENT FREDDY AND ADJUSTMENTS MADE TO INSULIN. DAUGHTER MIKE UPDATED VIA PHONE REQ OF PT AT BEDSIDE IN PT'S PRESENCE. WILL CONT TO [facility] THIS SHIFT AND REPORT TO NOCS
[2020-04-12 05:14] LABS: BASOPHILS ABSOLUTE AUTO 0.07 K/mm3 (0.00-0.23); BASOPHILS PERCENT AUTO 1 % (0-2); EOSINOPHILS ABSOLUTE AUTO 0.25 K/mm3 (0.00-0.68); EOSINOPHILS PERCENT AUTO 3 % (0-6); Hematocrit 33.3 % (33.0-51.0); Hemoglobin 10.8 g/dL (11.5-16.0); IMMATURE GRAN ABSOLUTE AUTO 0.05 K/mm3 (0.00-0.10); IMMATURE GRAN PERCENT AUTO 1 % (0-1); LYMPHOCYTES ABSOLUTE AUTO 2.57 K/mm3 (0.84-5.20); LYMPHOCYTES PERCENT AUTO 33 % (21-46); MONOCYTES ABSOLUTE AUTO 0.61 K/mm3 (0.16-1.47); MONOCYTES PERCENT AUTO 8 % (4-13); Mean Corpuscular HGB 29.3 pg (26.0-34.0); Mean Corpuscular HGB Conc 32.4 g/dL (31.5-36.5); Mean Corpuscular Volume 90 fL (80-100); Mean Platelet Volume 11.7 fL (9.1-12.4); NEUTROPHILS ABSOLUTE AUTO 4.31 K/mm3 (1.96-9.15); NEUTROPHILS PERCENT AUTO 55 % (41-73); Platelet Count 230 K/mm3 (150-400); RDW Coefficient Variation 12.8 % (11.7-14.2); RDW Standard Deviation 42.5 fL (35.1-46.3); Red Blood Cell Count 3.69 M/mm3 (3.80-5.20); White Blood Cell Count 7.86 K/mm3 (4.00-11.30)
[2020-04-12 05:37] LABS: Alanine Aminotransfer (ALT/SGP 133 U/L (12-78); Albumin, Blood 2.7 g/dL (3.4-5.0); Albumin/Globulin Ratio 1.1 (0.8-1.8); Alk Phos 123 U/L (50-136); Anion Gap 2 mmol/L (6-16); Aspartate Aminotrans (AST/SGOT 59 U/L (12-37); Bilirubin, Total 0.3 mg/dL (0.1-1.0); Blood Urea Nitrogen 16 mg/dL (8-24); Bun/Creatinine Ratio 17.5 (12.0-20.0); CO2, Blood 23 mmol/L (21-32); Calcium, Blood 8.6 mg/dL (8.5-10.1); Chloride, Blood 116 mmol/L (98-108); Creatinine, Blood 0.91 mg/dL (0.40-1.00); Globulin, Blood 2.5 g/dL (2.2-4.0); Glomerular Filtration Rate >60 (60-); Glucose, Blood 229 mg/dL (70-99); Potassium, Blood 4.7 mmol/L (3.5-5.5); Sodium, Blood 141 mmol/L (136-145); Total Protein, Blood 5.2 g/dL (6.4-8.2)
--- NOTE | 2020-04-12 05:55 | NUR ---
Rn summary: Pt is alert and oriented x 2-3. Pt does not like to use call light. She has been getting up to BSC independantly to void. Pt had her CPAP on for only 20 minutes then refused it. Pt also refusing cont Biox. Respiratory therapy aware. Vital signs stable and blood sugar was 144 last evening and 229 per lab this am. Patient was nausiated at the beginning of shift and received zofran with good relief. No discharge plan yet. Call light in reach. Pt has rested well tonight. Remains in contact islolation for ESBL in her urine. Will continue to monitor.
[2020-04-12] MEDS ORDERED: ACIDOPHILUS1 EAC3 PO (14:24)
--- NOTE | 2020-04-12 14:54 | NUR ---
1440 discharge discharge instructions reviewed with patient and pt tells me she will call for a ride to home. spoke with chastity avilez who tells me patient lives in independent living area . pt came out in [place] with her voice raised and states she is leaving to have a cigarette now and will wait outside for her ride. discussed with patient that i would like her to wait in room and i will take her out via wheelchair when her ride arrives, pt unable to tell me how long it will be before her ride arrives or where they are driving from. pt continues with raised voice and states she is leaving "now". pt declines wheelchair ride off of unit. pt self ambulated to smoking area accompanied by malachi chakraborty cna. phone call made to pts daughter, chula lopez [phone] and no answer at this time. my contact number left for chula with a message that her mother will be waiting at smoking area.
== END 2020-04-12 15:10 | disposition home or self-care (01) ==
LOC: ER 10:51 → MEDS 10:52
PROVIDERS: Emergency Medicine; Family Medicine; Nurse Practitioner Acute Care; ADMIT Internal Medicine
DX: N17.9 Acute kidney failure, unspecified (principal); J44.9 Chronic obstructive pulmonary disease, unspecified; E10.649 Type 1 diabetes mellitus with hypoglycemia without coma; N34.2 Other urethritis; G47.33 Obstructive sleep apnea (adult) (pediatric); G30.9 Alzheimer's disease, unspecified; F02.80 Dementia in other diseases classified elsewhere, unspecified severity, without behavioral disturbance, psychotic disturbance, mood disturbance, and anxiety; E10.42 Type 1 diabetes mellitus with diabetic polyneuropathy; E10.51 Type 1 diabetes mellitus with diabetic peripheral angiopathy without gangrene; E78.5 Hyperlipidemia, unspecified; F41.9 Anxiety disorder, unspecified; F32.9 Major depressive disorder, single episode, unspecified; I10 Essential (primary) hypertension; F17.210 Nicotine dependence, cigarettes, uncomplicated; Z66 Do not resuscitate; Z88.0 Allergy status to penicillin; Z88.2 Allergy status to sulfonamides; Z79.899 Other long term (current) drug therapy; M47.816 Spondylosis without myelopathy or radiculopathy, lumbar region; M48.061 Spinal stenosis, lumbar region without neurogenic claudication; R78.89 Finding of other specified substances, not normally found in blood
CPT/HCPCS: 36415; 70450; 71045; 72131; 80053; 80069; 80178; 81001; 82947; 83735; 83880; 84484; 85025; 87077; 87086; 87186; 94660; 94762; 96361; 96365; 96366; 96367; 96375; 96376; 97110; 97116; 97162; 99285-25; A9270; A9270-GY; G0378; J0696; J2185; J2405; J3480; J7030